=== PATIENT | male | born 1970 | race Caucasian/White ===

== ENCOUNTER 2020-02-09 11:39 | Outpatient (CLI) | payer OTHER, SELFPAY ==
--- NOTE | 2020-02-09 11:55 | XR_ITS ---
WS: [id number] RIGHT KNEE: 2 VIEW(S) TECHNIQUE: AP and lateral. HISTORY: R KNEE PAIN COMPARISON: None available. No fracture or dislocation. No joint space narrowing or osteophytes. No joint effusion. No soft tissue abnormality. XR/XR knee RT 1-2V [id number] IMPRESSION: Normal RIGHT knee.
== END 2020-02-09 11:40 | disposition home or self-care (01) ==
LOC: RAD CLINIC 11:46
PROVIDERS: PCP Dermatology; Visit Provider Dermatology
DX: M25.561 Pain in right knee (principal)
CPT/HCPCS: 73560

== ENCOUNTER → 2021-10-12 09:19 | Outpatient (BNVA) | payer MEDICAID, SELFPAY | PROVIDERS: PCP Dermatology; Referring Provider Nurse Practitioner; Visit Provider Podiatrist Foot & Ankle Surgery | DX: L60.0 Ingrowing nail (principal); L60.3 Nail dystrophy | CPT/HCPCS: 11750; 99203 ==

== ENCOUNTER → 2021-10-25 15:37 | Outpatient (BNVA) | payer MEDICAID, SELFPAY | PROVIDERS: PCP Dermatology; Visit Provider Podiatrist Foot & Ankle Surgery | DX: L60.0 Ingrowing nail (principal); L60.3 Nail dystrophy; B35.3 Tinea pedis | CPT/HCPCS: 99214 ==

== ENCOUNTER 2022-06-22 06:00 | Outpatient (RCR) | payer MEDICAID, SELFPAY | END 2022-07-10 23:59 | disposition home or self-care (01) | LOC: GPT 06:00 | PROVIDERS: Visit Provider Nurse Practitioner | DX: M54.2 Cervicalgia (principal); M54.50 Low back pain, unspecified; G89.29 Other chronic pain | CPT/HCPCS: 97161 ==

== ENCOUNTER 2022-07-11 06:00 | Outpatient (RCR) | payer MEDICAID, SELFPAY | END 2022-08-07 23:59 | disposition home or self-care (01) | LOC: GPT 06:00 | PROVIDERS: Visit Provider Nurse Practitioner | DX: M54.50 Low back pain, unspecified (principal); G89.29 Other chronic pain | CPT/HCPCS: 97110; 97530 ==

== ENCOUNTER 2022-08-08 06:00 | Outpatient (RCR) | payer MEDICAID, SELFPAY | END 2022-09-07 23:59 | disposition home or self-care (01) | LOC: GPT 06:00 | PROVIDERS: Visit Provider Nurse Practitioner | DX: M54.50 Low back pain, unspecified (principal); G89.29 Other chronic pain | CPT/HCPCS: 97110; 97530 ==

== ENCOUNTER 2023-05-01 06:49 | Outpatient (CLI) | payer MEDICAID, SELFPAY ==
--- NOTE | 2023-05-01 07:10 | MR_ITS ---
WS: [id number] MRI LUMBAR SPINE NONCONTRAST TECHNIQUE: Sagittal T1, T2 and STIR imaging. Axial T1 and T2 imaging. CLINICAL INFORMATION: VERTEBROGENIC LOW BACK PAIN COMPARISON: None. FINDINGS: Mild lumbar curve. No acute compression. Disc bulging worse at L1-L2 L2-L3 and L4-5. Disc narrowing w orse at L2-3. Small disc protrusions in the cervical spine on the separator inserter imaging at C4-C5 C5-C6 and C6 -C7. L1-L2: Mild annular bulging. Tiny central protrusion with slight craniocaudal extension. Slight narro wing of the subarticular recess. Mild facet arthropathy. Foramen are patent. L2-L3: Mild disc bulging with narrowing the RIGHT subarticular recess. Mild facet arthropathy. Small RIGHT foraminal protrusion with contact of the exiting RIGHT L2 nerve root. LEFT foramen is patent. M oderate facet arthropathy. Mild central canal stenosis. L3-L4: Mild annular bulging. LEFT foraminal protrusion impinges the exiting LEFT L3 nerve root with m oderate LEFT foraminal narrowing. Mild RIGHT foraminal narrowing. Spinal canal is patent. Mild facet arthropathy. L4-L5: Mild annular bulging. Mild central canal stenosis. Narrowing of the subarticular recess bilate rally. Moderate facet arthropathy. Moderate bilateral foraminal narrowing with small bilateral forami nal protrusions. L5-S1: Disc bulging with slight narrowing LEFT subarticular recess and encroachment LEFT S1 nerve sandra t. Moderate LEFT and mild RIGHT foraminal narrowing. Mild facet arthropathy. Visualized pelvic bony structures: Normal. Paravertebral soft tissues: Normal. IMPRESSION: 1. Mild lumbar curve. No acute compression. 2. LEFT foraminal protrusion L3-4 impinges the exiting LEFT L3 nerve root with moderate LEFT foramin al narrowing. 3. Mild central canal stenosis L2-3 with impingement RIGHT subarticular recess. Mild RIGHT L2-3 for aminal narrowing. 4. Small bilateral foraminal protrusions L4-5 slightly impinge the exiting L4 nerve roots bilaterall y. Moderate foraminal narrowing. 5. Eccentric disc bulge L5-S1 with slight contact of the exiting LEFT greater than RIGHT L5 nerve ro ots. 6. Moderate facet arthropathy L4-L5 and L5-S1. 7. Tiny central disc bulging L1-2 with slight cranial and caudal herniation. Slight effacement of th e ventral thecal sac.
== END 2023-05-01 06:50 | disposition home or self-care (01) ==
LOC: RAD 06:49
PROVIDERS: PCP Nurse Practitioner; Visit Provider Nurse Practitioner
DX: M47.817 Spondylosis without myelopathy or radiculopathy, lumbosacral region (principal); M51.26 Other intervertebral disc displacement, lumbar region; M51.37 Other intervertebral disc degeneration, lumbosacral region
CPT/HCPCS: 72148

== ENCOUNTER → 2025-01-04 13:06 | Outpatient (BNVA) | payer MEDICAID, SELFPAY | PROVIDERS: PCP Nurse Practitioner; Visit Provider Podiatrist Foot & Ankle Surgery | DX: L60.3 Nail dystrophy (principal) | CPT/HCPCS: 99203 ==

== ENCOUNTER → 2025-01-25 10:31 | Outpatient (BNVA) | payer MEDICAID, SELFPAY | PROVIDERS: PCP Nurse Practitioner; Visit Provider Dermatology | DX: L71.8 Other rosacea (principal); L82.1 Other seborrheic keratosis; D22.5 Melanocytic nevi of trunk; L82.0 Inflamed seborrheic keratosis; L29.89 Other pruritus; R20.8 Other disturbances of skin sensation; D48.5 Neoplasm of uncertain behavior of skin; L91.8 Other hypertrophic disorders of the skin | CPT/HCPCS: 11102; 11200; 17110; 99204 ==